=== PATIENT | male | born 1975 | race Asian ===

== ENCOUNTER 2018-01-04 11:24 | Emergency (ER) | payer MEDICAID, OTHER ==
[~2018-01-04] VITALS: Ht 170.2 cm; Wt 61.0 kg
[~2018-01-04 11:24] MED LIST: ALBU6.7H INH
[2018-01-04 11:27] VITALS: BP 150/102
== END 2018-01-04 12:41 | disposition left against medical advice (07) ==
LOC: ER 11:25
DX: J45.909 Unspecified asthma, uncomplicated (principal); Z53.21 Procedure and treatment not carried out due to patient leaving prior to being seen by health care provider